=== PATIENT | female | born 1985 ===

== ENCOUNTER 2017-05-27 18:26 | Inpatient (IN) | payer OTHER ==
[~2017-05-27] VITALS: Ht 152.4 cm; Wt 69.9 kg
[2017-05-28] MEDS ORDERED: PRENATABS FA T1 EACH PO (10:29)
[2017-05-28] MEDS ORDERED: FOLIC ACID1 MG PO (10:30)
== END 2017-05-29 14:39 | disposition home or self-care (01) | DRG 782 ==
LOC: OB/GYN 18:26
PROC: 4A1HXCZ Monitoring of Products of Conception, Cardiac Rate, External Approach (ICD-10-PCS; principal; 2017-05-27)
DX: O13.2 Gestational [pregnancy-induced] hypertension without significant proteinuria, second trimester (principal); Z3A.15 15 weeks gestation of pregnancy

== ENCOUNTER 2017-08-20 15:29 | Inpatient (IN) | payer OTHER ==
[~2017-08-20] VITALS: Ht 152.4 cm; Wt 72.6 kg
[~2017-08-20 15:29] MED LIST: FOLIC ACID1 MG PO; PRENATABS FA T1 EACH PO
[2017-08-22] MEDS ORDERED: CEFUROXIME250 MG PO (13:15)
[2017-08-22] MEDS ORDERED: NIFE60TA3 PO (13:17)
== END 2017-08-22 14:19 | DRG 780 ==
LOC: LDR 15:29 → OB/GYN 15:29 → LDR 17:51 → OB/GYN 08-21 10:39
PROC: 4A1HXCZ Monitoring of Products of Conception, Cardiac Rate, External Approach (ICD-10-PCS; principal; 2017-08-20)
DX: O47.02 False labor before 37 completed weeks of gestation, second trimester (principal); O28.8 Other abnormal findings on antenatal screening of mother

== ENCOUNTER 2017-10-04 19:29 | Inpatient (IN) | payer OTHER ==
[~2017-10-04] VITALS: Ht 152.4 cm; Wt 72.6 kg
[~2017-10-04 19:29] MED LIST changes: +CEFUROXIME250 MG PO; +NIFE60TA3 PO
[2017-10-09] MEDS ORDERED: IBUPROFEN800 MG PO (11:19)
[2017-10-09] MEDS ORDERED: CODE1TAB37 PO (11:19)
== END 2017-10-09 12:41 | disposition home or self-care (01) | DRG 766 ==
LOC: O/R 19:29 → LDR 19:29 → OB/GYN 19:29 → O/R 10-05 13:19 → LDR 10-06 09:05 → OB/GYN 10-06 15:12
PROVIDERS: Obstetrics & Gynecology
PROC: 4A1HXCZ Monitoring of Products of Conception, Cardiac Rate, External Approach (ICD-10-PCS; 2017-10-05)
PROC: 10D00Z1 Extraction of Products of Conception, Low, Open Approach (ICD-10-PCS; principal; 2017-10-05 09:00)
DX: O14.14 Severe pre-eclampsia complicating childbirth (principal); Z3A.33 33 weeks gestation of pregnancy; Z37.0 Single live birth